=== PATIENT | male | born 1970 | race Caucasian/White ===

== ENCOUNTER 2016-10-04 16:04 | Emergency (ER) | payer MEDICARE | END 2016-10-04 18:13 | disposition home or self-care (01) | LOC: ER1 16:04 | DX: S39.012A Strain of muscle, fascia and tendon of lower back, initial encounter (principal); F17.210 Nicotine dependence, cigarettes, uncomplicated; X58.XXXA Exposure to other specified factors, initial encounter | CPT/HCPCS: 72131; 99283 ==